=== PATIENT | male | born 1955 | race Caucasian/White ===

== ENCOUNTER 2016-11-20 12:55 | Observation (INO) | payer MEDICARE, OTHER ==
[2016-11-20] MEDS ORDERED: MORPHINE SULFATE 2 MG/ML SYRINGE IVP STA (13:50)
[2016-11-20] MEDS ORDERED: SODIUM CHLORIDE 0.9% 1,000 ML IV STA (13:50)
[2016-11-20 14:23] LABS: Basophils % (A) 0 %; CH 26.6; CHCM 33.1; Eosinophils # (A) 0.1 k/uL (0-0.7); Eosinophils % (A) 1 %; HCT 40.8 % (39.0-53.0); HDW 3.52; HGB 13.8 gm/dL (13.0-17.5); Luc # (Auto) 0.05; Luc % (Auto) 1; Lymphocytes # (A) 0.7 k/uL (1.0-4.8); Lymphocytes % (A) 10 %; MCH 27.4 pg (25.0-35.0); MCHC 33.9 g/dL (31.0-37.0); MCV 80.8 fL (80.0-100.0); Mean Platelet Volume 6.6; Monocytes # (A) 0.3 k/uL (0-1.0); Monocytes % (A) 4 %; Neutrophils # (A) 5.7 k/uL (1.3-7.7); Neutrophils % (A) 85 %; Poikilocytosis Slight; RBC 5.05 m/uL (4.30-5.90); RDW 15.6 % (11.5-15.5); WBC 6.7 k/uL (3.8-10.6); WBC (Perox) 6.71
[2016-11-20 14:26] LABS: INR 1.1 (<1.2); Prothrombin Time 11.4 sec (9.0-12.0)
[2016-11-20 14:27] LABS: Partial Thromboplastin Time 25.6 sec (22.0-30.0)
[2016-11-20 14:36] LABS: ALT 27 U/L (21-72); AST 18 U/L (17-59); Alkaline Phosphatase 92 U/L (38-126); Anion Gap 13 mmol/L; Blood Urea Nitrogen 17 mg/dL (9-20); Calcium 9.3 mg/dL (8.4-10.2); Carbon Dioxide 24 mmol/L (22-30); Chloride 107 mmol/L (98-107); Glucose 135 mg/dL (74-99); Non-African American GFR(MDRD) >60 (>60 ml/min/1.73 sqM); Potassium 4.3 mmol/L (3.5-5.1); Sodium 144 mmol/L (137-145); Total Bilirubin 0.7 mg/dL (0.2-1.3); Total Protein 7.4 g/dL (6.3-8.2)
[2016-11-20 14:42] LABS: Creatine Kinase 33 U/L (55-170)
[2016-11-20 14:55] LABS: Creatine Kinase MB 0.4 ng/mL (0.0-2.4); Troponin I <0.012 ng/mL (0.000-0.034)
--- NOTE | 2016-11-20 15:00 | XR ---
EXAMINATION TYPE: XR chest 1V DATE OF EXAM: 11/20/2016 COMPARISON: NONE HISTORY: Weakness, upper back pain TECHNIQUE: Single frontal view of the chest is obtained. FINDINGS: Patient is rotated, there are overlying cardiac leads. Exam is expiratory. No evident pneu monia, pneumothorax, or pleural effusion. Rib deformity present posterior third rib on the left of in determinate age. IMPRESSION: No acute process. Additional findings above.
--- NOTE | 2016-11-20 15:01 | XR ---
Right hip HISTORY: Weakness, cerebral palsy 2 views of the right hip Comparison prior exam 01/29/2016 Patient is rotated. There is joint space loss, question femoral acetabular impingement. Bone minerali zation is reduced. No fracture or dislocation. IMPRESSION: No acute abnormality, additional findings above.
--- NOTE | 2016-11-20 15:02 | XR ---
Bilateral knees HISTORY: Lower extremity weakness 3 views of the knees are submitted Correlation to prior left knee 11/28/2015 Joint space loss is present in the medial compartments. Alignment is maintained, bone mineralization is reduced. There are findings of patella richy bilaterally. IMPRESSION: Patella richy bilaterally, mild arthropathy. Osteopenia.
[2016-11-20 15:32] LABS: Appearance,Urine Clear (Clear); Bilirubin,Urine Negative (Negative); Glucose,Urine (UA) Negative (Negative); Ketones,Urine Negative (Negative); Leukocyte Esterase,Urine Negative (Negative); Nitrite,Urine Negative (Negative); PH, Urine 6.5 (5.0-8.0); Protein,Urine Negative (Negative); Specific Gravity,Urine 1.017 (1.001-1.035); UA Billing (MACRO vs. MICRO) CHEM
--- NOTE | 2016-11-20 15:39 | ED ---
Weakness HPI - General Chief complaint: Weakness Stated complaint: Weakness Time Seen by Provider: 11/20/16 13:40 Source: patient, EMS Mode of arrival: EMS Limitations: no limitations - History of Present Illness Initial comments: 61 years old male some chronic inability to walk been feeling very weak, he didn 't get out of the bed for 3 days him a he feels quite weak mostly he uses upper extremity to [employer] and He Said He Has Not Been Able to Do. His Caregiver Is His She Also Has Been under the Weather and She Stating She Has Not Been Able to Care for Him Because of Her Own Illness. His Biggest Concern Is withHis Lower Extremities Mostly Right Lower Extremity, Which She Uses removed from the back to temperature and vice versa area denies any headaches no chest pain or shortness of breath no abdominal pain no frequency urgency dysuria - Related Data Home Medications Medication Instructions Recorded Confirmed Enalapril [Vasotec] 10 mg PO BID 11/28/15 11/20/16 Ibuprofen [Motrin] 800 mg PO TID PRN 11/28/15 11/20/16 glipiZIDE XL [Glucotrol Xl] 5 mg PO BID 11/28/15 11/20/16 Hydrocodone/Acetaminophen [[place] 1 tab PO Q6H PRN 11/20/16 11/20/16 10-325] Insulin Glargine,Hum.rec.anlog 20 unit SQ HS 11/20/16 11/20/16 [Lantus Solostar] Nystatin [Nystop] 1 applic TOPICAL BID 11/20/16 11/20/16 metFORMIN HCL 1,000 mg PO BID 11/20/16 11/20/16 Allergies Allergy/AdvReac Type Severity Reaction Status Date / Time No Known Allergies Allergy Verified 11/20/16 13:41 Review of Systems ROS Statement: Those systems with pertinent positive or pertinent negative responses have been documented in the HPI. ROS Other: All systems not noted in ROS Statement are negative. Past Medical History Past Medical History: Diabetes Mellitus, Hypertension Additional Past Medical History / Comment(s): cerebal palsy History of Any Multi-Drug Resistant Organisms: None Reported Additional Past Surgical History / Comment(s): bilateral knee, tendon release in groin Past Psychological History: No Psychological Hx Reported Smoking Status: Never smoker Past Alcohol Use History: None Reported Past Drug Use History: None Reported General Exam - General Exam Comments Initial Comments: General: The patient is awake and alert, in no distress, and does not appear acutely ill. Skin: Skin is warm and dry and no rashes or lesions are noted. Eye: Pupils are equal, round and reactive to light, extra-ocular movements are intact; there is normal conjunctiva bilaterally. Ears, nose, mouth and throat: There are moist mucous membranes and no oral lesions. Neck: The neck is supple, there is no tenderness or JVD. Cardiovascular: There is a regular rate and rhythm. No murmur, rub or gallop is appreciated. Respiratory: To auscultation bilateral, no wheezing no rhonchi no distress respiratory rdz noticed Gastrointestinal: Soft, non-distended, non-tender abdomen without masses or organomegaly noted. There is no rebound or guarding present. Bowel sounds are unremarkable. Back: There is no tenderness to palpation in the midline. There is no obvious deformity. Musculoskeletal: Normal ROM, no because of his chronic condition he does have a limited range of motion it showed extremities but it's not changed from prior just feels weak Neurological: CN II-XII intact, Cranial nerves III through XII are intact. There are no obvious motor or sensory deficits. Coordination appears grossly intact. Speech is normal. Psychiatric: Cooperative, appropriate mood & affect, normal judgment. Limitations: no limitations Course Vital Signs 11/20/16 13:01 Temperature 98.3 F Pulse Rate 105 H Respiratory 20 Rate Blood Pressure 165/91 O2 Sat by Pulse 97 Oximetry Patient's labs including CBC, CMP, INR, troponin, chest x-ray, hip x-ray, knee, UA are all unremarkable - Reevaluation(s) Reevaluation #2: 11/20/16 15:38 She was encouraged to do a physical physical therapy at home and the patient posted the plan to Dr. Yousif. Family family suggesting N up to any of the local nursing homes for rehab, discussed that with Dr. Nayan Yousif EKG Findings - EKG Comments: EKG Findings:: G shows slight sinus tachycardia IN interval is 166 QRS duration is 118 QT/QTc is 338/4 throughout review of this EKG does not reveal any ST elevation or ST depression Medical Decision Making - Lab Data Result diagrams: 11/20/16 14:00 11/20/16 14:00 Lab Results 11/20/16 11/20/16 11/20/16 Range/Units 14:00 14:00 14:00 WBC 6.7 (3.8-10.6) k/uL RBC 5.05 (4.30-5.90) m/uL Hgb 13.8 (13.0-17.5) gm/dL Hct 40.8 (39.0-53.0) % MCV 80.8 (80.0-100.0) fL MCH 27.4 (25.0-35.0) pg MCHC 33.9 (31.0-37.0) g/dL RDW 15.6 H (11.5-15.5) % Plt Count 247 (150-450) k/uL Neutrophils % 85 % Lymphocytes % 10 % Monocytes % 4 % Eosinophils % 1 % Basophils % 0 % Neutrophils # 5.7 (1.3-7.7) k/uL Lymphocytes # 0.7 L (1.0-4.8) k/uL Monocytes # 0.3 (0-1.0) k/uL Eosinophils # 0.1 (0-0.7) k/uL Basophils # 0.0 (0-0.2) k/uL Poikilocytosis Slight PT (9.0-12.0) sec INR (<1.2) APTT (22.0-30.0) sec Sodium 144 (137-145) mmol/L Potassium 4.3 (3.5-5.1) mmol/L Chloride 107 (98-107) mmol/L Carbon Dioxide 24 (22-30) mmol/L Anion Gap 13 mmol/L BUN 17 (9-20) mg/dL Creatinine 0.60 L (0.66-1.25) mg/dL Est GFR (MDRD) Af Amer >60 (>60 ml/min/1.73 sqM) Est GFR (MDRD) Non-Af >60 (>60 ml/min/1.73 sqM) Glucose 135 H (74-99) mg/dL Plasma Lactic Acid Papo (0.7-2.0) mmol/L Calcium 9.3 (8.4-10.2) mg/dL Total Bilirubin 0.7 (0.2-1.3) mg/dL AST 18 (17-59) U/L ALT 27 (21-72) U/L Alkaline Phosphatase 92 (38-126) U/L Total Creatine Kinase 33 L (55-170) U/L CK-MB (CK-2) 0.4 (0.0-2.4) ng/mL CK-MB (CK-2) Rel Index 1.2 Troponin I <0.012 (0.000-0.034) ng/mL Total Protein 7.4 (6.3-8.2) g/dL Albumin 4.2 (3.5-5.0) g/dL Urine Color Urine Appearance (Clear) Urine pH (5.0-8.0) Ur Specific [place] (1.001-1.035) Urine Protein (Negative) Urine Glucose (UA) (Negative) Urine Ketones (Negative) Urine Blood (Negative) Urine Nitrite (Negative) Urine Bilirubin (Negative) Urine Urobilinogen (<2.0) mg/dL Ur Leukocyte Esterase (Negative) 11/20/16 11/20/16 11/20/16 Range/Units 14:00 14:00 15:25 WBC (3.8-10.6) k/uL RBC (4.30-5.90) m/uL Hgb (13.0-17.5) gm/dL Hct (39.0-53.0) % MCV (80.0-100.0) fL MCH (25.0-35.0) pg MCHC (31.0-37.0) g/dL RDW (11.5-15.5) % Plt Count (150-450) k/uL Neutrophils % % Lymphocytes % % Monocytes % % Eosinophils % % Basophils % % Neutrophils # (1.3-7.7) k/uL Lymphocytes # (1.0-4.8) k/uL Monocytes # (0-1.0) k/uL Eosinophils # (0-0.7) k/uL Basophils # (0-0.2) k/uL Poikilocytosis PT 11.4 (9.0-12.0) sec INR 1.1 (<1.2) APTT 25.6 (22.0-30.0) sec Sodium (137-145) mmol/L Potassium (3.5-5.1) mmol/L Chloride (98-107) mmol/L Carbon Dioxide (22-30) mmol/L Anion Gap mmol/L BUN (9-20) mg/dL Creatinine (0.66-1.25) mg/dL Est GFR (MDRD) Af Amer (>60 ml/min/1.73 sqM) Est GFR (MDRD) Non-Af (>60 ml/min/1.73 sqM) Glucose (74-99) mg/dL Plasma Lactic Acid Papo 1.1 (0.7-2.0) mmol/L Calcium (8.4-10.2) mg/dL Total Bilirubin (0.2-1.3) mg/dL AST (17-59) U/L ALT (21-72) U/L Alkaline Phosphatase (38-126) U/L Total Creatine Kinase (55-170) U/L CK-MB (CK-2) (0.0-2.4) ng/mL CK-MB (CK-2) Rel Index Troponin I (0.000-0.034) ng/mL Total Protein (6.3-8.2) g/dL Albumin (3.5-5.0) g/dL Urine Color Yellow Urine Appearance Clear (Clear) Urine pH 6.5 (5.0-8.0) Ur Specific [place] 1.017 (1.001-1.035) Urine Protein Negative (Negative) Urine Glucose (UA) Negative (Negative) Urine Ketones Negative (Negative) Urine Blood Negative (Negative) Urine Nitrite Negative (Negative) Urine Bilirubin Negative (Negative) Urine Urobilinogen 2.0 (<2.0) mg/dL Ur Leukocyte Esterase Negative (Negative) Disposition Clinical Impression: Generalized weakness Disposition: ADMITTED IP TO THIS [facility] Condition: Good Referrals: Nayan Yousif DO [Primary Care Provider] - 1-2 days
[2016-11-20] MEDS: HYDROcodone/APAP 10-325MG 1 EACH TAB PO PRN (17:56)
[2016-11-20] MEDS: IBUPROFEN 800 MG TAB PO PRN (17:57)
[2016-11-20 18:17] VITALS: BMI 38.9
[2016-11-20 20:57] LABS: Glucose,Whole Blood 146 mg/dL (75-99)
[2016-11-20] MEDS: glipiZIDE 5 MG TAB PO SCH (21:41)
[2016-11-20] MEDS: INSULIN GLARGINE 100 UNIT/ML 10 ML VIAL SQ SCH (21:41)
[2016-11-20] MEDS: NYSTATIN 100,000 UNIT/GM POWD 15 GM TOPICAL SCH (21:41)
[2016-11-20] MEDS: metFORMIN 500 MG TAB PO SCH (21:41)
[2016-11-21] MEDS: IBUPROFEN 800 MG TAB PO PRN ×2 (00:56→18:15)
[2016-11-21 07:01] LABS: Glucose,Whole Blood 103 mg/dL (75-99)
[2016-11-21] MEDS: glipiZIDE 5 MG TAB PO SCH ×2 (08:03→21:46)
[2016-11-21] MEDS: NYSTATIN 100,000 UNIT/GM POWD 15 GM TOPICAL SCH ×2 (08:03→22:48)
[2016-11-21] MEDS: metFORMIN 500 MG TAB PO SCH ×2 (08:03→21:46)
[2016-11-21] MEDS: LISINOPRIL 20 MG TAB PO SCH (08:03)
[2016-11-21 12:14] LABS: Glucose,Whole Blood 66 mg/dL (75-99)
[2016-11-21 12:54] LABS: Glucose,Whole Blood 68 mg/dL (75-99)
[2016-11-21 12:54] LABS: Glucose,Whole Blood 56 mg/dL (75-99)
[2016-11-21 12:58] LABS: Glucose,Whole Blood 78 mg/dL (75-99)
[2016-11-21 17:30] LABS: Glucose,Whole Blood 103 mg/dL (75-99)
[2016-11-21 21:40] LABS: Glucose,Whole Blood 95 mg/dL (75-99)
[2016-11-21] MEDS: INSULIN GLARGINE 100 UNIT/ML 10 ML VIAL SQ SCH (21:40)
[2016-11-22] MEDS: HYDROcodone/APAP 10-325MG 1 EACH TAB PO PRN ×2 (04:13→21:31)
[2016-11-22] MEDS: IBUPROFEN 800 MG TAB PO PRN (04:14)
[2016-11-22 07:14] LABS: Glucose,Whole Blood 131 mg/dL (75-99)
[2016-11-22] MEDS: LISINOPRIL 20 MG TAB PO SCH (09:28)
[2016-11-22] MEDS: metFORMIN 500 MG TAB PO SCH ×2 (09:28→21:34)
[2016-11-22] MEDS: glipiZIDE 5 MG TAB PO SCH ×2 (09:28→21:34)
[2016-11-22] MEDS: NYSTATIN 100,000 UNIT/GM POWD 15 GM TOPICAL SCH ×2 (09:28→21:32)
[2016-11-22 11:56] LABS: Glucose,Whole Blood 83 mg/dL (75-99)
--- NOTE | 2016-11-22 14:32 | HP ---
DATE OF ADMISSION: 11/20/2016 DATE PATIENT SEEN AND EXAMINED: 11/21/2016 The patient is a pleasant 61-year-old white male who was admitted for generalized weakness. The patient having some chronic inability to walk, has been falling and has been weak. He suffers from cerebral palsy, is wheelchair bound. He does have a lift at home. His caregiver, which is his , has been under the weather, she has not been able to care for him because of her own illnesses. Patient denies any particular complaints, just his inability to ambulate and bear weight. MEDICATIONS AT HOME: Vasotec, Motrin, Glucotrol, [place], Lantus, Nystatin and metformin. ALLERGIES: No known drug allergies. REVIEW OF SYSTEMS: Denies any chest pain. Denies any shortness of breath. Denies any dysuria. Denies any stroke or paralysis. Admits to cerebral palsy. 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 Other review of systems unremarkable. PAST MEDICAL HISTORY: Significant for diabetes, poor dentition, hypertension, cerebral palsy. PAST SURGICAL HISTORY: Bilateral knee, tendon release in his groin. SOCIAL HISTORY: Negative for tobacco, alcohol or drugs. PSYCHOLOGICAL: Denies any depression. PHYSICAL EXAMINATION: He is alert, he is answering questions appropriately. SKIN: Warm and dry to palpation. EYES: Pupils equal, round, reactive to light. NECK: Supple. No JVD. HEART: Regular rate and rhythm. LUNGS: Clear to auscultation. ABDOMEN: Soft, nontender. No rebound, rigidity or guarding. EXTREMITIES: Some contractions in lower extremities. NEUROLOGIC: Cranial nerves 2-12 grossly intact. Some flexure contractions in the upper extremities. There is some weakness and atrophy in the lower extremities secondary to cerebral palsy. Labs are essentially unremarkable with negative urine. IMPRESSION: 1. Acute generalized weakness. 2. Unable to ambulate. 3. Cerebral palsy. PLAN: Admit patient hopefully with physical therapy and rehab placement for patient if possible. [facility]
--- NOTE | 2016-11-22 14:59 | PN ---
SUBJECTIVE: The patient is a 61 year old white male who was admitted. He is doing well today without any complaints. He wants inpatient rehabilitation. However, he is still in observation admission to the hospital and not a full admission. His urine looks good. His sugars have been stable. His lower extremities still are weak. Mostly his right lower extremity. He states he might need a new brace for this area. Physical exam: HEENT: Head is normocephalic with poor dentition. Neck is supple with no JVD. Heart regular rate and rhythm. Lungs clear to auscultation. Abdomen soft and nontender. No rebound, rigidity or guarding. IMPRESSION: 1. Acute generalized weakness. 2. Cerebral palsy, wheelchair bound. Power lift and scooter use. PLAN: Hopefully get the patient transferred to any rehab facility. CELY
[2016-11-22 17:06] LABS: Glucose,Whole Blood 76 mg/dL (75-99)
[2016-11-22 20:51] LABS: Glucose,Whole Blood 117 mg/dL (75-99)
[2016-11-22] MEDS: INSULIN GLARGINE 100 UNIT/ML 10 ML VIAL SQ SCH (22:49)
[2016-11-23] MEDS: IBUPROFEN 800 MG TAB PO PRN ×2 (00:39→09:09)
[2016-11-23 02:05] LABS: Glucose,Whole Blood 73 mg/dL (75-99)
[2016-11-23 06:40] LABS: Glucose,Whole Blood 90 mg/dL (75-99)
[2016-11-23 07:36] VITALS: BP 120/77; PULSE 74; RESP 14; TEMP 96.9
[2016-11-23] MEDS: glipiZIDE 5 MG TAB PO SCH (08:55)
[2016-11-23] MEDS: metFORMIN 500 MG TAB PO SCH (08:59)
[2016-11-23] MEDS: LISINOPRIL 20 MG TAB PO SCH (09:02)
[2016-11-23] MEDS: NYSTATIN 100,000 UNIT/GM POWD 15 GM TOPICAL SCH (09:06)
[2016-11-23 11:49] LABS: Glucose,Whole Blood 146 mg/dL (75-99)
== END 2016-11-23 14:52 | disposition home health service (06) ==
LOC: EC 12:55 → INTOOBSV 15:42 → OBSVTOIN 15:42 → 4MS4W 15:42
PROVIDERS: ADMIT Family Medicine; ATTEND Family Medicine
DX: R53.1 Weakness (principal); M54.89 Other dorsalgia; I10 Essential (primary) hypertension; E11.9 Type 2 diabetes mellitus without complications; G80.9 Cerebral palsy, unspecified; Z79.84 Long term (current) use of oral hypoglycemic drugs; Z79.899 Other long term (current) drug therapy; Z79.4 Long term (current) use of insulin; Z99.3 Dependence on wheelchair
CPT/HCPCS: 96361 ×3; 96360; 99285; 36415; 93005; 97162; 97166; 80053; 82550; 82553; 83605; 84484; 85025; 85610; 85730; 81003; 71010; 73560; 73502; G0378 ×4

== ENCOUNTER 2022-06-08 19:53 | Inpatient (IN) | payer MEDICARE, OTHER ==
[2022-06-08] MEDS ORDERED: SODIUM CHLORIDE 0.9% 1,000 ML IV STA ×2 (20:18)
[2022-06-08 21:09] LABS: Basophils % (A) 0 %; Eosinophils # (A) 0.1 k/uL (0-0.7); Eosinophils % (A) 1 %; HCT 43.4 % (39.0-53.0); HGB 15.1 gm/dL (13.0-17.5); Lymphocytes # (A) 1.2 k/uL (1.0-4.8); Lymphocytes % (A) 15 %; MCH 28.3 pg (25.0-35.0); MCHC 34.8 g/dL (31.0-37.0); MCV 81.3 fL (80.0-100.0); Monocytes # (A) 0.3 k/uL (0-1.0); Monocytes % (A) 4 %; Neutrophils # (A) 5.9 k/uL (1.3-7.7); Neutrophils % (A) 77 %; Platelet Count 208 k/uL (150-450); Poikilocytosis Slight; RBC 5.33 m/uL (4.30-5.90); RDW 15.4 % (11.5-15.5); WBC 7.6 k/uL (3.8-10.6)
[2022-06-08 21:27] LABS: ALT 20 U/L (4-49); AST 19 U/L (17-59); African American GFR (CKD) >90 (>60 ml/min/1.73 sqM); Albumin 4.2 g/dL (3.5-5.0); Alkaline Phosphatase 89 U/L (38-126); Anion Gap 10 mmol/L; Blood Urea Nitrogen 16 mg/dL (9-20); C Reactive Protein 1.7 mg/dL (<1.0); Calcium 8.7 mg/dL (8.4-10.2); Carbon Dioxide 23 mmol/L (22-30); Chloride 108 mmol/L (98-107); Glucose 176 mg/dL (74-99); Non-African American GFR(CKD) >90 (>60 ml/min/1.73 sqM); Potassium 3.9 mmol/L (3.5-5.1); Sodium 141 mmol/L (137-145); Total Bilirubin 0.8 mg/dL (0.2-1.3); Total Protein 7.2 g/dL (6.3-8.2)
--- NOTE | 2022-06-08 21:31 | XR ---
EXAMINATION TYPE: XR pelvis AP view DATE OF EXAM: 06/08/2022 COMPARISON: NONE HISTORY: bed Sore left hip. TECHNIQUE: Single view FINDINGS: The pelvic ring is intact. Proximal femurs are intact. No focal bone destruction. Sacroilia c joints are intact. There is narrowing of right hip joint space with spur formation. IMPRESSION: Right hip osteoarthritis. No focal bone destruction.
[2022-06-08 21:57] LABS: Erythrocyte Sedimentation Rate 18 mm/hr (0-15)
[2022-06-08] MEDS ORDERED: AMPICILLIN-SULBACTAM 3 GM in SODIUM CHLORIDE 0.9% 100 ML IVPB STA (21:57)
--- NOTE | 2022-06-08 21:57 | ED ---
General Adult HPI - General Chief complaint: Extremity Problem,Nontraumatic Stated complaint: BED SORE,SENT BY PCP Time Seen by Provider: 06/08/22 20:05 Source: patient, EMS Mode of arrival: EMS Limitations: physical limitation - History of Present Illness Initial comments: 67-year-old male with past history of diabetes, hypertension, cerebral palsy who is wheelchair bound who presents emergency department for sore on his left buttock. He has a home care nurse that comes in once a week to help care for him. The home care nurse noted that he had a wound to his left buttock. He has also been battling a wound to his right anterior coleman. He is wheelchair bound. States that he was well taken care of before March however in March he lost his . He now lives with his [id number] who also has medical problems. He has been more sedentary than what he is used to. He denies having much pain in the region. No fevers. Denies any chest pain or shortness of breath. No nausea or vomiting. Denies any anterior abdominal pain. No changes in his bowel or bladder habits. States he has been eating and drinking without difficulty. He called his primary care doctor who recommended that he come into the emergency department for evaluation. - Related Data Home Medications Medication Instructions Recorded Confirmed Enalapril [Vasotec] 10 mg PO DAILY 11/28/15 06/08/22 Ibuprofen [Motrin] 800 mg PO TID PRN 11/28/15 06/08/22 glipiZIDE XL [Glucotrol XL] 5 mg PO BID 11/28/15 06/08/22 metFORMIN HCL [Glucophage] 1,000 mg PO BID 11/20/16 06/08/22 Atorvastatin [Lipitor] 20 mg PO HS 06/08/22 06/08/22 Insulin Degludec [Tresiba 25 units SQ DAILY PRN 06/08/22 06/08/22 Flextouch U-200 Pen] Silver Sulfadiazine [SSD 1% Cream] 1 applic TOPICAL DAILY PRN 06/08/22 06/08/22 Allergies Allergy/AdvReac Type Severity Reaction Status Date / Time No Known Allergies Allergy Verified 06/08/22 20:57 Review of Systems ROS Statement: Those systems with pertinent positive or pertinent negative responses have been documented in the HPI. ROS Other: All systems not noted in ROS Statement are negative. Past Medical History Past Medical History: Diabetes Mellitus, Hypertension Additional Past Medical History / Comment(s): cerebal palsy History of Any Multi-Drug Resistant Organisms: None Reported Past Surgical History: Cholecystectomy Additional Past Surgical History / Comment(s): bilateral knee, tendon release in groin Past Anesthesia/Blood Transfusion Reactions: No Reported Reaction Past Psychological History: No Psychological Hx Reported Past Alcohol Use History: None Reported Past Drug Use History: None Reported - Past Family History Father Family Medical History: Myocardial Infarction (NH) Additional Family Medical History / Comment(s): Brother(s) Family Medical History: Myocardial Infarction (NH) General Exam Limitations: physical limitation General appearance: alert, in no apparent distress Head exam: Present: atraumatic, normocephalic, normal inspection Eye exam: Present: normal appearance, PERRL, EOMI. Absent: scleral icterus, conjunctival injection, periorbital swelling ENT exam: Present: normal exam, mucous membranes moist Neck exam: Present: normal inspection. Absent: tenderness, meningismus, lymphadenopathy Respiratory exam: Present: normal lung sounds bilaterally. Absent: respiratory distress, wheezes, rales, rhonchi, stridor Cardiovascular Exam: Present: normal rhythm, tachycardia, normal heart sounds. Absent: systolic murmur, diastolic murmur, rubs, gallop, clicks GI/Abdominal exam: Present: soft, normal bowel sounds. Absent: distended, tenderness, guarding, rebound, rigid Rectal exam: Present: other (stage 1 sacral wound) Extremities exam: Present: normal capillary refill, other (muscle atrophy lower extremities). Absent: tenderness, pedal edema, joint swelling, calf tenderness Back exam: Present: normal inspection Neurological exam: Present: alert, oriented X3, CN II-XII intact Psychiatric exam: Present: normal affect, normal mood Skin exam: Present: warm, dry, intact, normal color. Absent: rash Course Vital Signs 06/08/22 06/08/22 06/08/22 20:00 20:01 20:10 Temperature 97.4 F L Pulse Rate 127 H 135 H Respiratory 18 Rate Blood Pressure 174/102 174/102 O2 Sat by Pulse 98 97 Oximetry 06/08/22 06/08/22 06/08/22 20:40 20:50 21:00 Temperature Pulse Rate 128 H 122 H 120 H Respiratory Rate Blood Pressure 158/100 153/99 153/99 O2 Sat by Pulse Oximetry 06/08/22 06/08/22 06/08/22 21:10 21:20 21:30 Temperature Pulse Rate 121 H 124 H Respiratory Rate Blood Pressure 156/95 137/106 137/106 O2 Sat by Pulse 96 97 Oximetry 06/08/22 06/08/22 06/08/22 22:00 22:30 23:00 Temperature Pulse Rate 118 H 115 H 105 H Respiratory 18 Rate Blood Pressure 119/107 179/98 156/109 O2 Sat by Pulse 96 96 98 Oximetry EKG Findings - EKG Comments: EKG Findings:: EKG demonstrates sinus tachycardia with a rate of 125. QRS 127. QTC of 491. Right bundle-branch block. No acute ST segment elevations or depressions Medical Decision Making - Medical Decision Making Was pt. sent in by a medical professional or institution (CON Marmolejo, BOOM CONVEYOR OPERATOR, urgent care, hospital, or custodial...) When possible be specific No Did you speak to anyone other than the patient for history (EMS, parent, family, police, friend...)? What history was obtained from this source No Did you review nursing and triage notes (agree or disagree)? Why? I reviewed and agree with nursing and triage notes Were old charts reviewed (outside hosp., previous admission, EMS record, old EKG, old radiological studies, urgent care reports/EKG's, custodial records)? Report findings Prior charts were reviewed Differential Diagnosis (chest pain, altered mental status, abdominal pain women, abdominal pain men, vaginal bleeding, weakness, fever, dyspnea, syncope, headache, dizziness, GI bleed, back pain, seizure, CVA, palpatations, mental health)? sacral wound, necrotizing fascitis, sepsis EKG interpreted by me (3pts min.). Yes X-rays interpreted by me (1pt min.). Yes CT interpreted by me (1pt min.). Not done U/S interpreted by me (1pt. min.). Note done What testing was considered but not performed or refused? (CT, X-rays, U/S, labs)? Why? None What meds were considered but not given or refused? Why? None Did you discuss the management of the patient with other professionals (professionals i.e. CON Marmolejo, BOOM CONVEYOR OPERATOR, lab, RT, psych nurse, social work assistant, box stapler, teacher, surveillance dual rate officer, behavioral health case manager)? Give summary Admitting physician Was smoking cessation discussed for >3mins.? No Was critical care preformed (if so, how long)? No Were there social determinants of health that impacted care today? How? (Homelessness, low income, unemployed, alcoholism, drug addiction, transportation, low edu. Level, literacy, decrease access to med. care, assisted, rehab)? No Was there de-escalation of care discussed even if they declined (Discuss DNR or withdrawal of care, Hospice)? DNR status No What co-morbidities impacted this encounter? (DM, HTN, Smoking, COPD, CAD, Cancer, CVA, ARF, Chemo, Hep., AIDS, mental health diagnosis, sleep apnea, morbid obesity)? CP, wheelchair bound Was patient admitted / discharged? Hospital course, mention meds given and route, prescriptions, significant lab abnormalities, going to OR and other pertinent info. Upon arrival patient was placed into room 20. A thorough history and physical exam was performed. IV access was established and laboratory studies are conducted. Patient does have persistent tachycardia however patient denies ches t pain, shortness of breath or palpitations. Laboratory studies reveal a lactic of 3.8. C-reactive protein 1.7. Pelvic x-ray is performed to look for gas which is present. Results are discussed with the patient. Recommend admission for which she was agreeable. I will consult case management and wound care. Undiagnosed new problem with uncertain prognosis? Yes Drug Therapy requiring intensive monitoring for toxicity (Heparin, Nitro, Ins ulin, Cardizem)? No Were any procedures done? No Diagnosis/symptom? acute sacral wound, tachycardia Acute, or Chronic, or Acute on Chronic? acute Uncomplicated (without systemic symptoms) or Complicated (systemic symptoms)? complicated Side effects of treatment? no Exacerbation, Progression, or Severe Exacerbation? no Poses a threat to life or bodily function? How? (Chest pain, [place], [place], pneumonia, PE, COPD, DKA, ARF, appy, cholecystitis, CVA, Diverticulitis, Homicidal, Suicidal, threat to staff... and all critical care pts) yes - Lab Data Result diagrams: 06/10/22 06:42 06/10/22 06:42 Lab Results 06/08/22 06/08/22 06/08/22 Range/Units 20:36 20:36 20:36 WBC 7.6 (3.8-10.6) k/uL RBC 5.33 (4.30-5.90) m/uL Hgb 15.1 (13.0-17.5) gm/dL Hct 43.4 (39.0-53.0) % MCV 81.3 (80.0-100.0) fL MCH 28.3 (25.0-35.0) pg MCHC 34.8 (31.0-37.0) g/dL RDW 15.4 (11.5-15.5) % Plt Count 208 (150-450) k/uL MPV 7.0 Neutrophils % 77 % Lymphocytes % 15 % Monocytes % 4 % Eosinophils % 1 % Basophils % 0 % Neutrophils # 5.9 (1.3-7.7) k/uL Lymphocytes # 1.2 (1.0-4.8) k/uL Monocytes # 0.3 (0-1.0) k/uL Eosinophils # 0.1 (0-0.7) k/uL Basophils # 0.0 (0-0.2) k/uL Poikilocytosis Slight ESR 18 H (0-15) mm/hr Sodium 141 (137-145) mmol/L Potassium 3.9 (3.5-5.1) mmol/L Chloride 108 H (98-107) mmol/L Carbon Dioxide 23 (22-30) mmol/L Anion Gap 10 mmol/L BUN 16 (9-20) mg/dL Creatinine 0.71 (0.66-1.25) mg/dL Est GFR (CKD-EPI)AfAm >90 (>60 ml/min/1.73 sqM) Est GFR (CKD-EPI)NonAf >90 (>60 ml/min/1.73 sqM) Glucose 176 H (74-99) mg/dL Lactic Ac Sepsis Rflx Plasma Lactic Acid Papo 3.8 H* (0.7-2.0) mmol/L Calcium 8.7 (8.4-10.2) mg/dL Total Bilirubin 0.8 (0.2-1.3) mg/dL AST 19 (17-59) U/L ALT 20 (4-49) U/L Alkaline Phosphatase 89 (38-126) U/L C-Reactive Protein 1.7 H (<1.0) mg/dL Total Protein 7.2 (6.3-8.2) g/dL Albumin 4.2 (3.5-5.0) g/dL 06/08/22 Range/Units 21:41 WBC (3.8-10.6) k/uL RBC (4.30-5.90) m/uL Hgb (13.0-17.5) gm/dL Hct (39.0-53.0) % MCV (80.0-100.0) fL MCH (25.0-35.0) pg MCHC (31.0-37.0) g/dL RDW (11.5-15.5) % Plt Count (150-450) k/uL MPV Neutrophils % % Lymphocytes % % Monocytes % % Eosinophils % % Basophils % % Neutrophils # (1.3-7.7) k/uL Lymphocytes # (1.0-4.8) k/uL Monocytes # (0-1.0) k/uL Eosinophils # (0-0.7) k/uL Basophils # (0-0.2) k/uL Poikilocytosis ESR (0-15) mm/hr Sodium (137-145) mmol/L Potassium (3.5-5.1) mmol/L Chloride (98-107) mmol/L Carbon Dioxide (22-30) mmol/L Anion Gap mmol/L BUN (9-20) mg/dL Creatinine (0.66-1.25) mg/dL Est GFR (CKD-EPI)AfAm (>60 ml/min/1.73 sqM) Est GFR (CKD-EPI)NonAf (>60 ml/min/1.73 sqM) Glucose (74-99) mg/dL Lactic Ac Sepsis Rflx Y Plasma Lactic Acid Papo (0.7-2.0) mmol/L Calcium (8.4-10.2) mg/dL Total Bilirubin (0.2-1.3) mg/dL AST (17-59) U/L ALT (4-49) U/L Alkaline Phosphatase (38-126) U/L C-Reactive Protein (<1.0) mg/dL Total Protein (6.3-8.2) g/dL Albumin (3.5-5.0) g/dL Disposition Clinical Impression: Sacral wound, Lactic acidosis, Sinus tachycardia Disposition: ADMITTED IP TO THIS [facility] Condition: Stable Is patient prescribed a controlled substance at d/c from ED?: No Time of Disposition: 21:57 Decision to Admit Reason: Admit from EC Decision Date: 06/08/22 Decision Time: 21:57
[2022-06-08] MEDS ORDERED: NALOXONE 0.4 MG/ML 1 ML VIAL IV PRN (21:58)
[2022-06-08] MEDS ORDERED: VANCOMYCIN IV PER PHARMACY 1 EACH MISC MISCELLANE PRN (21:58)
[2022-06-08] MEDS ORDERED: ACETAMINOPHEN TAB 325 MG TAB PO PRN (21:58)
[2022-06-08] MEDS ORDERED: VANCOMYCIN 1,500 MG in SODIUM CHLORIDE 0.9% 500 ML 500 ML IVPB ONE (23:00)
[2022-06-09 04:09] LABS: Basophils % (A) 0 %; Eosinophils # (A) 0.1 k/uL (0-0.7); Eosinophils % (A) 1 %; HCT 40.9 % (39.0-53.0); HGB 13.7 gm/dL (13.0-17.5); Lymphocytes # (A) 1.3 k/uL (1.0-4.8); Lymphocytes % (A) 19 %; MCH 28.3 pg (25.0-35.0); MCHC 33.5 g/dL (31.0-37.0); MCV 84.3 fL (80.0-100.0); Mean Platelet Volume 6.9; Monocytes # (A) 0.3 k/uL (0-1.0); Monocytes % (A) 5 %; Neutrophils # (A) 5.2 k/uL (1.3-7.7); Neutrophils % (A) 74 %; Platelet Count 187 k/uL (150-450); Poikilocytosis Slight; RBC 4.85 m/uL (4.30-5.90); RDW 15.2 % (11.5-15.5)
[2022-06-09 04:30] LABS: African American GFR (CKD) >90 (>60 ml/min/1.73 sqM); Anion Gap 8 mmol/L; Blood Urea Nitrogen 16 mg/dL (9-20); Calcium 8.1 mg/dL (8.4-10.2); Carbon Dioxide 22 mmol/L (22-30); Chloride 111 mmol/L (98-107); Glucose 115 mg/dL (74-99); Non-African American GFR(CKD) >90 (>60 ml/min/1.73 sqM); Potassium 3.6 mmol/L (3.5-5.1); Sodium 141 mmol/L (137-145)
[2022-06-09 05:55] LABS: Glucose,Whole Blood 136 mg/dL (70-110)
[2022-06-09] MEDS ORDERED: VANCOMYCIN 1,250 MG in SODIUM CHLORIDE 0.9% 250 ML IVPB SCH ×2 (08:00→13:00)
[2022-06-09] MEDS ORDERED: IBUPROFEN 800 MG TAB PO PRN (09:55)
[2022-06-09] MEDS ORDERED: INSULIN DETEMIR (LEVEMIR) 100 UNIT/ML SYR SQ PRN (09:55)
[2022-06-09] MEDS: lisinopriL 20 MG TAB PO SCH (11:30)
[2022-06-09 11:41] LABS: Glucose,Whole Blood 146 mg/dL (70-110)
[2022-06-09] MEDS: INSULIN ASPART (NovoLOG) 100 UNIT/ML VIAL SQ SCH ×3 (11:41→21:50)
[2022-06-09] MEDS: VANCOMYCIN 1,500 MG in SODIUM CHLORIDE 0.9% 500 ML 500 ML IVPB SCH (11:53)
[2022-06-09 16:37] LABS: Glucose,Whole Blood 162 mg/dL (70-110)
--- NOTE | 2022-06-09 18:21 | P.HPIM ---
History of Present Illness H&P Date: 06/09/22 Chief Complaint: Wound left buttock 67-year-old male with past history of diabetes, hypertension, cerebral palsy who is wheelchair bound who presents emergency department for sore on his left buttock. He has a home care nurse that comes in once a week to help care for him. The home care nurse noted that he had a wound to his left buttock. He has also been battling a wound to his right anterior coleman. He is wheelchair bound. States that he was well taken care of before March however in March he lost his . He now lives with his [id number] who also has medical problems. He has been more sedentary than what he is used to. He denies having much pain in the region. No fevers. Denies any chest pain or shortness of breath. No nausea or vomiting. Denies any anterior abdominal pain. No changes in his bowel or bladder habits. States he has been eating and drinking without difficulty. He called his primary care doctor who recommended that he come into the emergency department for evaluation. EKG Findings:: EKG demonstrates sinus tachycardia with a rate of 125. QRS 127. QTC of 491. Right bundle-branch block. No acute ST segment elevations or depressions Patient does have persistent tachycardia however patient denies chest pain, shortness of breath or palpitations. Laboratory studies reveal a lactic of 3.8. C-reactive protein 1.7. Pelvic x-ray is performed to look for gas which is present. Patient is reported to have recently lost his and is now being cared by [id number]; in the ER patient was found to be unkempt; social service/WING SCORER consult is recommended for possible placement Review of Systems REVIEW OF SYSTEMS: CONSTITUTIONAL: No fever, no malaise, no fatigue. HEENT: No recent visual problems or hearing problems. Denied any sore throat. CARDIOVASCULAR: No chest pain, orthopnea, PND, no palpitations, no syncope. PULMONARY: No shortness of breath, no cough, no hemoptysis. GASTROINTESTINAL: No diarrhea, no nausea, no vomiting, no abdominal pain. NEUROLOGICAL: No headaches, no weakness, no numbness. HEMATOLOGICAL: Denies any bleeding or petechiae. GENITOURINARY: Denies any burning micturition, frequency, or urgency. MUSCULOSKELETAL/RHEUMATOLOGICAL: Denies any joint pain, swelling, or any muscle pain. ENDOCRINE: Denies any polyuria or polydipsia. The rest of the 14-point review of systems is negative. Past Medical History Past Medical History: Diabetes Mellitus, Hypertension Additional Past Medical History / Comment(s): cerebal palsy History of Any Multi-Drug Resistant Organisms: None Reported Past Surgical History: Cholecystectomy Additional Past Surgical History / Comment(s): bilateral knee, tendon release in groin Past Anesthesia/Blood Transfusion Reactions: No Reported Reaction Smoking Status: Unknown if ever smoked - Past Family History Father Family Medical History: Myocardial Infarction ([place]) Additional Family Medical History / Comment(s): Brother(s) Family Medical History: Myocardial Infarction ([place]) Medications and Allergies Home Medications Medication Instructions Recorded Confirmed Type Enalapril [Vasotec] 10 mg PO DAILY 11/28/15 06/08/22 History Ibuprofen [Motrin] 800 mg PO TID PRN 11/28/15 06/08/22 History glipiZIDE XL [Glucotrol XL] 5 mg PO BID 11/28/15 06/08/22 History metFORMIN HCL [Glucophage] 1,000 mg PO BID 11/20/16 06/08/22 History Atorvastatin [Lipitor] 20 mg PO HS 06/08/22 06/08/22 History Insulin Degludec [Tresiba 25 units SQ DAILY PRN 06/08/22 06/08/22 History Flextouch U-200 Pen] Silver Sulfadiazine [SSD 1% Cream] 1 applic TOPICAL DAILY PRN 06/08/22 06/08/22 History Allergies Allergy/AdvReac Type Severity Reaction Status Date / Time No Known Allergies Allergy Verified 06/08/22 20:57 Physical Exam Vitals: Vital Signs Temp Pulse Pulse Resp BP BP Pulse Ox 06/09/22 07:32 97.6 F 87 15 156/92 98 06/09/22 01:55 98.5 F 100 18 139/75 99 06/09/22 00:21 97.9 F 103 H 17 156/95 97 06/08/22 23:00 105 H 18 156/109 98 06/08/22 22:30 115 H 179/98 96 06/08/22 22:00 118 H 119/107 96 06/08/22 21:30 124 H 137/106 97 06/08/22 21:20 121 H 137/106 96 06/08/22 21:10 156/95 06/08/22 21:00 120 H 153/99 06/08/22 20:50 122 H 153/99 06/08/22 20:40 128 H 158/100 06/08/22 20:10 135 H 174/102 06/08/22 20:01 97.4 F L 127 H 18 174/102 97 06/08/22 20:00 98 Intake and Output 06/08/22 06/09/22 06/09/22 22:59 06:59 14:59 Output Total 350 Balance -350 Output: Urine 350 Other: Weight 90.718 kg 90.718 kg PHYSICAL EXAMINATION: GENERAL: The patient is alert and oriented x3, not in any acute distress. Well developed, well nourished. HEENT: Pupils are round and equally reacting to light. EOMI. No scleral icterus. No conjunctival pallor. Normocephalic, atraumatic. No pharyngeal erythema. No thyromegaly. CARDIOVASCULAR: S1 and S2 present. No murmurs, rubs, or gallops. PULMONARY: Chest is clear to auscultation, no wheezing or crackles. ABDOMEN: Soft, nontender, nondistended, normoactive bowel sounds. No palpable organomegaly. MUSCULOSKELETAL: No joint swelling or deformity. EXTREMITIES: No cyanosis, clubbing, or pedal edema. NEUROLOGICAL: Gross neurological examination did not reveal any focal deficits. SKIN: No rashes. Results CBC & Chem 7: 06/09/22 03:26 06/09/22 03:26 Labs: Abnormal Lab Results - Last 24 Hours (Table) 06/08/22 06/08/22 06/08/22 Range/Units 20:36 20:36 20:36 ESR 18 H (0-15) mm/hr Chloride 108 H (98-107) mmol/L Creatinine (0.66-1.25) mg/dL Glucose 176 H (74-99) mg/dL POC Glucose (mg/dL) (70-110) mg/dL Plasma Lactic Acid Papo 3.8 H* (0.7-2.0) mmol/L Calcium (8.4-10.2) mg/dL C-Reactive Protein 1.7 H (<1.0) mg/dL 0206/09/22 06/09/22 Range/Units 00:05 03:26 03:26 ESR (0-15) mm/hr Chloride 111 H (98-107) mmol/L Creatinine 0.58 L (0.66-1.25) mg/dL Glucose 115 H (74-99) mg/dL POC Glucose (mg/dL) (70-110) mg/dL Plasma Lactic Acid Papo 2.8 H* 2.9 H* (0.7-2.0) mmol/L Calcium 8.1 L (8.4-10.2) mg/dL C-Reactive Protein (<1.0) mg/dL 06/09/22 Range/Units 05:53 ESR (0-15) mm/hr Chloride (98-107) mmol/L Creatinine (0.66-1.25) mg/dL Glucose (74-99) mg/dL POC Glucose (mg/dL) 136 H (70-110) mg/dL Plasma Lactic Acid Papo (0.7-2.0) mmol/L Calcium (8.4-10.2) mg/dL C-Reactive Protein (<1.0) mg/dL Assessment and Plan Assessment: 1. Infected sacral decubitus ulcer - Local wound care is ordered; patient is placed on IV Unasyn; ID is consulted - We will monitor CBC, CMP and pro-calcitonin 2. Lactic acidosis; likely related to wound tract infection versus dehydration; patient did receive IV fluid resuscitation; lactic acid level is trending down 3. Hypertension; stable on home dose of lisinopril 20 mg daily 4. Diabetes mellitus controlled with insulin; continue with Levemir 25 units subcu daily along with metformin thousand milligrams twice a day; monitor Accu- Cheks before meals and at bedtime with insulin sliding scale 5. Hyperlipidemia; Lipitor 20 mg by mouth daily at bedtime 6. Cerebral palsy; we will consult case management/WING SCORER for possible placement
[2022-06-09 20:38] LABS: Glucose,Whole Blood 141 mg/dL (70-110)
[2022-06-09] MEDS: metFORMIN 500 MG TAB PO SCH (21:49)
[2022-06-09] MEDS: ATORVASTATIN 20 MG TAB PO SCH (21:50)
--- NOTE | 2022-06-09 21:52 | P.CONS ---
History of Present Illness - Reason for Consult Consult date: 06/09/22 Infected sacral wound Requesting physician: Nahomy Viveros - Chief Complaint Worsening to the back and right leg x days - History of Present Illness Patient is a 67-year-old male with a past medical history significant for diabetes mellitus and hypertension cerebral palsy in this patient who is a wheelchair-bound presenting to the ER for evaluation of a wound to his left gluteal area and currently the patient also have one on his right anterior coleman patient apparently did have a home care nurse wound checks on him once daily to change his dressing however there has been concern for possible worsening of his wound for the patient had been sent to the ER for further evaluation by his PCP. On today's evaluation that is 06/09/2019, the patient denies having any fever or any chills, the patient denies any chest pain or shortness of breath or cough no nausea no vomiting no abdominal pain no diarrhea patient did have some dull aching pain to his left gluteal wound area 2-3 out of 10 and no radiation however there is no sniffing and slough tissue or any drainage but the nursing staff patient on presentation hospital was afebrile and no fever has been rec orded subsequently patient did have a normal white count patient did have x-ray of the pelvis area did not show any bony destruction patient was started on vancomycin and infectious disease was consulted for further management of antibiotic therapy Review of Systems Positive point has been mentioned in the HPI rest of the systems are negative Past Medical History Past Medical History: Diabetes Mellitus, Hypertension Additional Past Medical History / Comment(s): cerebal palsy History of Any Multi-Drug Resistant Organisms: None Reported Past Surgical History: Cholecystectomy Additional Past Surgical History / Comment(s): bilateral knee, tendon release in groin Past Anesthesia/Blood Transfusion Reactions: No Reported Reaction Smoking Status: Unknown if ever smoked - Past Family History Father Family Medical History: Myocardial Infarction ([place]) Additional Family Medical History / Comment(s): Brother(s) Family Medical History: Myocardial Infarction ([place]) Medications and Allergies Home Medications Medication Instructions Recorded Confirmed Type Enalapril [Vasotec] 10 mg PO DAILY 11/28/15 06/08/22 History Ibuprofen [Motrin] 800 mg PO TID PRN 11/28/15 06/08/22 History glipiZIDE XL [Glucotrol XL] 5 mg PO BID 11/28/15 06/08/22 History metFORMIN HCL [Glucophage] 1,000 mg PO BID 11/20/16 06/08/22 History Atorvastatin [Lipitor] 20 mg PO HS 06/08/22 06/08/22 History Insulin Degludec [Tresiba 25 units SQ DAILY PRN 06/08/22 06/08/22 History Flextouch U-200 Pen] Silver Sulfadiazine [SSD 1% Cream] 1 applic TOPICAL DAILY PRN 06/08/22 06/08/22 History Acetaminophen Tab [Tylenol] 650 mg PO Q6HR PRN tab 06/12/22 Rx INSULIN LISPRO (HumaLOG) [humaLOG] 0 unit SQ ACHS #10 ml 06/12/22 Rx Nystatin 100,000 Unit/gm Powd 1 applic TOPICAL TID #30 gm 06/12/22 Rx [Mycostatin Powder] Cephalexin [Keflex] 500 mg PO Q8HR 7 Days #21 cap 06/13/22 Rx Allergies Allergy/AdvReac Type Severity Reaction Status Date / Time No Known Allergies Allergy Verified 06/08/22 20:57 Physical Exam Vitals: Vital Signs Temp Pulse Pulse Resp BP BP Pulse Ox 06/09/22 07:32 97.6 F 87 15 156/92 98 06/09/22 01:55 98.5 F 100 18 139/75 99 06/09/22 00:21 97.9 F 103 H 17 156/95 97 06/08/22 23:00 105 H 18 156/109 98 06/08/22 22:30 115 H 179/98 96 06/08/22 22:00 118 H 119/107 96 06/08/22 21:30 124 H 137/106 97 06/08/22 21:20 121 H 137/106 96 06/08/22 21:10 156/95 06/08/22 21:00 120 H 153/99 06/08/22 20:50 122 H 153/99 06/08/22 20:40 128 H 158/100 06/08/22 20:10 135 H 174/102 06/08/22 20:01 97.4 F L 127 H 18 174/102 97 06/08/22 20:00 98 Intake and Output 06/08/22 06/09/22 06/09/22 22:59 06:59 14:59 Output Total 350 Balance -350 Output: Urine 350 Other: Weight 90.718 kg 90.718 kg GENERAL DESCRIPTION: Elderly male lying in bed, no distress. No tachypnea or accessory muscle of respiration use. HEENT: Shows Pallor , no scleral icterus. Oral mucous membrane is dry. No pharyngeal erythema or thrush NECK: Trachea central, no thyromegaly. LUNGS: Unlabored breathing. Clear to auscultation anteriorly. No wheeze or crackle. HEART: S1, S2, regular rate and rhythm. No loud murmur ABDOMEN: Soft, no tenderness , guarding or rigidity, no organomegaly EXTREMITIES: Right lower extremity with some erythema and open wound or drainage, patient did have a stage II pressure ulcer to the left gluteal/upper thigh area with no slough tissue or drainage SKIN: No rash, no masses palpable. NEUROLOGICAL: The patient is awake, alert, oriented x3, mood and affect normal. Results CBC & Chem 7: 06/10/22 06:42 06/11/22 05:33 Labs: Abnormal Lab Results - Last 24 Hours (Table) 06/08/22 06/08/22 06/08/22 Range/Units 20:36 20:36 20:36 ESR 18 H (0-15) mm/hr Chloride 108 H (98-107) mmol/L Creatinine (0.66-1.25) mg/dL Glucose 176 H (74-99) mg/dL POC Glucose (mg/dL) (70-110) mg/dL Plasma Lactic Acid Papo 3.8 H* (0.7-2.0) mmol/L Calcium (8.4-10.2) mg/dL C-Reactive Protein 1.7 H (<1.0) mg/dL 06/09/22 06/09/22 06/09/22 Range/Units 00:05 03:26 03:26 ESR (0-15) mm/hr Chloride 111 H (98-107) mmol/L Creatinine 0.58 L (0.66-1.25) mg/dL Glucose 115 H (74-99) mg/dL POC Glucose (mg/dL) (70-110) mg/dL Plasma Lactic Acid Papo 2.8 H* 2.9 H* (0.7-2.0) mmol/L Calcium 8.1 L (8.4-10.2) mg/dL C-Reactive Protein (<1.0) mg/dL 06/09/22 06/09/22 06/09/22 Range/Units 05:53 10:28 11:40 ESR (0-15) mm/hr Chloride (98-107) mmol/L Creatinine (0.66-1.25) mg/dL Glucose (74-99) mg/dL POC Glucose (mg/dL) 136 H 146 H (70-110) mg/dL Plasma Lactic Acid Papo 2.1 H* (0.7-2.0) mmol/L Calcium (8.4-10.2) mg/dL C-Reactive Protein (<1.0) mg/dL Assessment and Plan (1) Cellulitis Current Visit: Yes Status: Acute Code(s): L03.90 - CELLULITIS, UNSPECIFIED SNOMED Code(s): 938002737 Plan: 1patient presented to the hospital with the wound to the left posterior thigh/ gluteal area and also the wound to the right coleman which has been there for a while apparently did has slight worsening noticed by the home care nurse however patient is afebrile white count is normal no significant slough tissue or drainage was noticed 2we will check inflammatory markers 3local wound care to continue as ordered keep the area of the pressure 4recommended discontinue vancomycin if the inflammatory markers are normal We will follow on clinical condition and cultures to further adjust medication if needed Thank you for this consultation will follow this patient with you Time with Patient: Greater than 30
[2022-06-10] MEDS: VANCOMYCIN 1,500 MG in SODIUM CHLORIDE 0.9% 500 ML 500 ML IVPB SCH ×2 (00:09→12:21)
[2022-06-10 06:13] LABS: Glucose,Whole Blood 134 mg/dL (70-110)
[2022-06-10] MEDS: INSULIN ASPART (NovoLOG) 100 UNIT/ML VIAL SQ SCH ×4 (06:40→21:39)
[2022-06-10] MEDS ORDERED: VANCOMYCIN TROUGH DUE 1 EACH MISC MISCELLANE ONE ×2 (07:00→23:00)
[2022-06-10 07:20] LABS: African American GFR (CKD) >90 (>60 ml/min/1.73 sqM); Anion Gap 5 mmol/L; Blood Urea Nitrogen 14 mg/dL (9-20); Calcium 7.9 mg/dL (8.4-10.2); Carbon Dioxide 21 mmol/L (22-30); Chloride 112 mmol/L (98-107); Glucose 134 mg/dL (74-99); Non-African American GFR(CKD) >90 (>60 ml/min/1.73 sqM); Potassium 3.6 mmol/L (3.5-5.1); Sodium 138 mmol/L (137-145)
[2022-06-10 08:02] LABS: C Reactive Protein 0.9 mg/dL (<1.0)
[2022-06-10] MEDS: metFORMIN 500 MG TAB PO SCH ×2 (09:16→21:39)
[2022-06-10] MEDS: lisinopriL 20 MG TAB PO SCH (09:16)
[2022-06-10 09:25] LABS: Basophils # (A) 0.02 X 10*3/uL (0.00-0.10); Basophils % (A) 0.4 %; Eosinophils # (A) 0.14 X 10*3/uL (0.04-0.35); Eosinophils % (A) 2.5 %; HCT 38.1 % (39.6-50.0); HGB 12.1 g/dL (13.0-17.0); Immature Grans, Automated 0.4 %; Lymphocytes # (A) 1.32 X 10*3/uL (0.90-5.00); Lymphocytes % (A) 23.6 %; MCH 27.4 pg (27.0-32.0); MCHC 31.8 g/dL (32.0-37.0); MCV 86.2 fL (80.0-97.0); Mean Platelet Volume 9.2 fL (9.5-12.2); Monocytes # (A) 0.38 X 10*3/uL (0.20-1.00); Monocytes % (A) 6.8 %; NRBC Per 100 WBC 0 /100 WBCS (0.0-0.0); Neutrophils # (A) 3.71 X 10*3/uL (1.80-7.70); Neutrophils % (A) 66.3 %; Platelet Count 159 X 10*3/uL (140-440); RBC 4.42 X 10*6/uL (4.40-5.60); RDW 14.9 % (11.5-14.5); WBC 5.59 X 10*3/uL (4.50-10.00)
[2022-06-10 12:00] LABS: Glucose,Whole Blood 136 mg/dL (70-110)
[2022-06-10 16:56] LABS: Glucose,Whole Blood 122 mg/dL (70-110)
--- NOTE | 2022-06-10 17:21 | P.PN ---
Subjective Progress Note Date: 06/10/22 67-year-old male with past history of diabetes, hypertension, cerebral palsy who is wheelchair bound who presents emergency department for sore on his left buttock. He has a home care nurse that comes in once a week to help care for him. The home care nurse noted that he had a wound to his left buttock. He has also been battling a wound to his right anterior coleman. He is wheelchair bound. States that he was well taken care of before March however in March he lost his . He now lives with his [id number] who also has medical problems. He has been more sedentary than what he is used to. He denies having much pain in the region. No fevers. Denies any chest pain or shortness of br eath. No nausea or vomiting. Denies any anterior abdominal pain. No changes in his bowel or bladder habits. States he has been eating and drinking without difficulty. He called his primary care doctor who recommended that he come into the emergency department for evaluation. EKG Findings:: EKG demonstrates sinus tachycardia with a rate of 125. QRS 127. QTC of 491. Right bundle-branch block. No acute ST segment elevations or depressions Patient does have persistent tachycardia however patient denies chest pain, shortness of breath or palpitations. Laboratory studies reveal a lactic of 3.8. C-reactive protein 1.7. Pelvic x-ray is performed to look for gas which is present. Patient is reported to have recently lost his and is now being cared by [id number]; in the ER patient was found to be unkempt; social service/OCCUPATIONAL PSYCHOLOGIST consult is recommended for possible placement -- Patient has been evaluated by ID; white blood count and inflammatory markers remain within normal limits; ID recommending to continue with the local wound care and keep pressure 80 is protected; vancomycin is recommended to be discontinued at this time Objective - Vital Signs Vital signs: Vital Signs Temp 97.8 F 06/10/22 08:08 Pulse 77 06/10/22 08:08 Resp 15 06/10/22 08:08 BP 122/71 06/10/22 08:08 Pulse Ox 97 06/10/22 08:08 FiO2 Intake & Output 06/09/22 06/10/22 06/10/22 18:59 06:59 18:59 Other: Voiding Method Urinal Diaper # Voids 3 3 - Exam GENERAL: The patient is alert and oriented x3, not in any acute distress. Well developed, well nourished. HEENT: Pupils are round and equally reacting to light. EOMI. No scleral icterus. No conjunctival pallor. Normocephalic, atraumatic. No pharyngeal erythema. No thyromegaly. CARDIOVASCULAR: S1 and S2 present. No murmurs, rubs, or gallops. PULMONARY: Chest is clear to auscultation, no wheezing or crackles. ABDOMEN: Soft, nontender, nondistended, normoactive bowel sounds. No palpable organomegaly. MUSCULOSKELETAL: No joint swelling or deformity. EXTREMITIES: No cyanosis, clubbing, or pedal edema. NEUROLOGICAL: Gross neurological examination did not reveal any focal deficits. SKIN: No rashes. - Labs CBC & Chem 7: 06/10/22 06:42 06/10/22 06:42 Labs: Abnormal Lab Results - Last 24 Hours (Table) 06/09/22 06/09/22 06/09/22 Range/Units 10:28 11:40 16:36 Hgb (13.0-17.0) g/dL Hct (39.6-50.0) % MCHC (32.0-37.0) g/dL RDW (11.5-14.5) % MPV (9.5-12.2) fL Chloride (98-107) mmol/L Carbon Dioxide (22-30) mmol/L Creatinine (0.66-1.25) mg/dL Glucose (74-99) mg/dL POC Glucose (mg/dL) 146 H 162 H (70-110) mg/dL Plasma Lactic Acid Papo 2.1 H* (0.7-2.0) mmol/L Calcium (8.4-10.2) mg/dL 06/09/22 06/10/22 06/10/22 Range/Units 20:36 06:07 06:42 Hgb (13.0-17.0) g/dL Hct (39.6-50.0) % MCHC (32.0-37.0) g/dL RDW (11.5-14.5) % MPV (9.5-12.2) fL Chloride 112 H (98-107) mmol/L Carbon Dioxide 21 L (22-30) mmol/L Creatinine 0.50 L (0.66-1.25) mg/dL Glucose 134 H (74-99) mg/dL POC Glucose (mg/dL) 141 H 134 H (70-110) mg/dL Plasma Lactic Acid Papo (0.7-2.0) mmol/L Calcium 7.9 L (8.4-10.2) mg/dL 06/10/22 Range/Units 06:42 Hgb 12.1 L (13.0-17.0) g/dL Hct 38.1 L (39.6-50.0) % MCHC 31.8 L (32.0-37.0) g/dL RDW 14.9 H (11.5-14.5) % MPV 9.2 L (9.5-12.2) fL Chloride (98-107) mmol/L Carbon Dioxide (22-30) mmol/L Creatinine (0.66-1.25) mg/dL Glucose (74-99) mg/dL POC Glucose (mg/dL) (70-110) mg/dL Plasma Lactic Acid Papo (0.7-2.0) mmol/L Calcium (8.4-10.2) mg/dL Microbiology - Last 24 Hours (Table) 06/08/22 22:15 Blood Culture - Preliminary Blood No Growth after 24 hours Assessment and Plan Assessment: 1. Infected sacral decubitus ulcer - Local wound care is ordered; patient is placed on IV Unasyn; ID is consulted - We will monitor CBC, CMP and pro-calcitonin 2. Lactic acidosis; likely related to wound tract infection versus dehydration; patient did receive IV fluid resuscitation; lactic acid level is trending down 3. Hypertension; stable on home dose of lisinopril 20 mg daily 4. Diabetes mellitus controlled with insulin; continue with Levemir 25 units subcu daily along with metformin thousand milligrams twice a day; monitor Accu- Cheks before meals and at bedtime with insulin sliding scale 5. Hyperlipidemia; Lipitor 20 mg by mouth daily at bedtime 6. Cerebral palsy; we will consult case management/OCCUPATIONAL PSYCHOLOGIST for possible placement
--- NOTE | 2022-06-10 18:42 | P.PN ---
Subjective Progress Note Date: 06/10/22 Principal diagnosis: Left posterior thigh/gluteal area wound Patient is a 67-year-old male with a past medical history significant for diabetes mellitus and hypertension cerebral palsy in this patient who is a wheelchair-bound presenting to the ER for evaluation of a wound to his left gluteal area and also some erythema to the right anterior coleman On today's evaluation that is 06/10/2022, the patient denies having any fever or any chills patient is breathing comfortably no chest pain shortness of breath or cough denies having any worsening pain to the left gluteal and right anterior leg wound area Objective - Vital Signs Vital signs: Vital Signs Temp 97.5 F L 06/10/22 01:20 Pulse 84 06/10/22 01:20 Resp 17 06/10/22 01:20 BP 125/75 06/10/22 01:20 Pulse Ox 96 06/10/22 01:20 FiO2 Intake & Output 06/09/22 06/10/22 06/10/22 18:59 06:59 18:59 Other: Voiding Method Urinal Diaper # Voids 3 3 - Exam GENERAL DESCRIPTION: An elderly male lying in bed in no distress RESPIRATORY SYSTEM: Unlabored breathing , decreased breath sounds at bases HEART: S1 S2 regular rate and rhythm , ABDOMEN: Soft , no tenderness EXTREMITIES: Left posterior thigh/gluteal area did have a stage II ulcer, right anterior coleman area did have some swelling and minimal redness but no open wound or drainage - Labs CBC & Chem 7: 06/10/22 06:42 06/10/22 06:42 Labs: Abnormal Lab Results - Last 24 Hours (Table) 06/09/22 06/09/22 06/09/22 Range/Units 10:28 11:40 16:36 Chloride (98-107) mmol/L Carbon Dioxide (22-30) mmol/L Creatinine (0.66-1.25) mg/dL Glucose (74-99) mg/dL POC Glucose (mg/dL) 146 H 162 H (70-110) mg/dL Plasma Lactic Acid Papo 2.1 H* (0.7-2.0) mmol/L Calcium (8.4-10.2) mg/dL 06/09/22 06/10/22 06/10/22 Range/Units 20:36 06:07 06:42 Chloride 112 H (98-107) mmol/L Carbon Dioxide 21 L (22-30) mmol/L Creatinine 0.50 L (0.66-1.25) mg/dL Glucose 134 H (74-99) mg/dL POC Glucose (mg/dL) 141 H 134 H (70-110) mg/dL Plasma Lactic Acid Papo (0.7-2.0) mmol/L Calcium 7.9 L (8.4-10.2) mg/dL Microbiology - Last 24 Hours (Table) 06/08/22 22:15 Blood Culture - Preliminary Blood No Growth after 24 hours Assessment and Plan (1) Cellulitis Current Visit: Yes Status: Acute Code(s): L03.90 - CELLULITIS, UNSPECIFIED SNOMED Code(s): 155631291 Plan: 1patient presented to the hospital with the wound to the left posterior thigh/ gluteal area and also the wound to the right coleman which has been there for a while apparently did has slight worsening noticed by the home care nurse however patient is afebrile white count is normal, left gluteal/posterior thigh area did have a stage II ulcer but no slough tissue right anterior leg did have minimal erythema of possible cellulitis 2local wound care to left gluteal/posterior thigh wound area with Aquacel silver dressing changed every 48 hour 3discontinue vancomycin and start the patient cefazolin Time with Patient: Less than 30
[2022-06-10 21:02] LABS: Glucose,Whole Blood 159 mg/dL (70-110)
[2022-06-10] MEDS: ATORVASTATIN 20 MG TAB PO SCH (21:39)
[2022-06-11 05:56] LABS: Glucose,Whole Blood 135 mg/dL (70-110)
[2022-06-11] MEDS: INSULIN ASPART (NovoLOG) 100 UNIT/ML VIAL SQ SCH ×4 (06:21→22:04)
[2022-06-11 06:26] LABS: African American GFR (CKD) >90 (>60 ml/min/1.73 sqM); Non-African American GFR(CKD) >90 (>60 ml/min/1.73 sqM)
[2022-06-11] MEDS: metFORMIN 500 MG TAB PO SCH ×2 (10:11→22:04)
[2022-06-11] MEDS: lisinopriL 20 MG TAB PO SCH (10:11)
--- NOTE | 2022-06-11 12:17 | P.PN ---
Subjective Progress Note Date: 06/11/22 Principal diagnosis: Left posterior thigh/gluteal area wound Patient is a 67-year-old male with a past medical history significant for diabetes mellitus and hypertension cerebral palsy in this patient who is a wheelchair-bound presenting to the ER for evaluation of a wound to his left gluteal area and also some erythema to the right anterior coleman On today's evaluation that is 06/11/2022, the patient continues to be afebrile, patient is breathing comfortably, the patient denies chest pain shortness of breath or cough denies having any pain to the left gluteal and right anterior leg wound area Objective - Vital Signs Vital signs: Vital Signs Temp 97.6 F 06/11/22 08:18 Pulse 80 06/11/22 08:18 Resp 16 06/11/22 08:18 BP 143/82 06/11/22 08:18 Pulse Ox 98 06/11/22 08:18 FiO2 Intake & Output 06/10/22 06/11/22 06/11/22 18:59 06:59 18:59 Output Total 400 600 Balance -400 -600 Output: Urine 400 600 Other: Voiding Method Urinal Urinal Urinal Diaper Diaper Diaper # Voids 1 # Bowel Movements 1 - Exam GENERAL DESCRIPTION: An elderly male lying in bed in no distress RESPIRATORY SYSTEM: Unlabored breathing , decreased breath sounds at bases HEART: S1 S2 regular rate and rhythm , ABDOMEN: Soft , no tenderness EXTREMITIES: Left posterior thigh/gluteal area did have a stage II ulcer, right anterior coleman area did have some swelling and minimal redness but no open wound or drainage - Labs CBC & Chem 7: 06/10/22 06:42 06/11/22 05:33 Labs: Abnormal Lab Results - Last 24 Hours (Table) 06/10/22 06/10/22 06/10/22 Range/Units 11:59 16:54 21:00 Creatinine (0.66-1.25) mg/dL POC Glucose (mg/dL) 136 H 122 H 159 H (70-110) mg/dL 06/11/22 06/11/22 Range/Units 05:33 05:54 Creatinine 0.49 L (0.66-1.25) mg/dL POC Glucose (mg/dL) 135 H (70-110) mg/dL Microbiology - Last 24 Hours (Table) 06/08/22 22:15 Blood Culture - Preliminary Blood No Growth after 48 hours Assessment and Plan (1) Cellulitis Current Visit: Yes Status: Acute Code(s): L03.90 - CELLULITIS, UNSPECIFIED SNOMED Code(s): 135900987 Plan: 1patient presented to the hospital with the wound to the left posterior thigh/ gluteal area and also the wound to the right coleman which has been there for a while apparently did has slight worsening noticed by the home care nurse however patient is afebrile white count is normal, left gluteal/posterior thigh area did have a stage II ulcer but no slough tissue right anterior leg did have minimal erythema of possible cellulitis 2local wound care to left gluteal/posterior thigh wound area with Aquacel silver dressing changed every 48 hour 3patient to continue with cefazolin, finishing therapy with oral Keflex Time with Patient: Less than 30
[2022-06-11 14:45] VITALS: BMI 35.4
--- NOTE | 2022-06-11 15:03 | P.PN ---
Subjective Progress Note Date: 06/11/22 This is a pleasant 67-year-old gentleman with past medical history of cerebral palsy, wheelchair bound, diabetes mellitus, admitted with left posterior thigh and gluteal area wounds. Evaluated by infectious disease, maintained on ceftazolin with local wound care with Aquacel silver dressings. Patient's recently in March, his [id number]-lw-awv has been trying to take care of, but expressed unable to do so. Patient reports his shu lift is manual and difficult for 1 person to manage. Reports they pulled up the carpeting and installed hardwood floors to facilitate the lift, but continues to experience difficulty. Good diet intake with no nausea vomiting or diarrhea. Blood sugars controlled. Denies chest pain, palpitations or shortness of breath. Afebrile. Preliminary blood cultures reporting no growth after 48 hours. Maintaining O2 sats in the high 90s on room air. Objective - Vital Signs Vital signs: Vital Signs Temp 97.6 F 06/11/22 08:18 Pulse 80 06/11/22 08:18 Resp 16 06/11/22 08:18 BP 143/82 06/11/22 08:18 Pulse Ox 98 06/11/22 08:18 FiO2 Intake & Output 06/10/22 06/11/22 06/11/22 18:59 06:59 18:59 Output Total 400 600 400 Balance -400 -600 -400 Output: Urine 400 600 400 Other: Voiding Method Urinal Urinal Urinal Diaper Diaper Diaper # Voids 1 # Bowel Movements 1 - Exam - Exam GENERAL: The patient is alert and oriented x3, no acute distress. Well developed, well nourished. HEENT: Pupils are round and equally reacting to light. EOMI. No scleral icterus. No conjunctival pallor. Normocephalic, atraumatic. No pharyngeal erythema. No thyromegaly. CARDIOVASCULAR: S1 and S2 present. No murmurs, rubs, or gallops. PULMONARY: Chest is clear to auscultation, no wheezing or crackles. ABDOMEN: Soft, nontender, nondistended, normoactive bowel sounds. No palpable organomegaly. EXTREMITIES: Stage II ulcer left gluteal/thigh, cellulitis right anterior lower extremity without drainage, minimal edema or redness. NEUROLOGICAL: Gross neurological examination did not reveal any new focal deficits. SKIN: No rashes. Warm and dry - Labs CBC & Chem 7: 06/10/22 06:42 06/11/22 05:33 Labs: Abnormal Lab Results - Last 24 Hours (Table) 06/10/22 06/10/22 06/11/22 Range/Units 16:54 21:00 05:33 Creatinine 0.49 L (0.66-1.25) mg/dL POC Glucose (mg/dL) 122 H 159 H (70-110) mg/dL 06/11/22 Range/Units 05:54 Creatinine (0.66-1.25) mg/dL POC Glucose (mg/dL) 135 H (70-110) mg/dL Microbiology - Last 24 Hours (Table) 06/08/22 22:15 Blood Culture - Preliminary Blood No Growth after 48 hours Assessment and Plan Assessment: Diabetic ulcer,Left gluteal/thigh stage II, right anterior lower extremity cellulitis Dehydration Lactic acidosis secondary to the above Diabetes mellitus Hypertension Hyperlipidemia Cerebral palsy, wheelchair bound Grieving, spouse recently in March 2022. Plan: Continue on current medication regime ,monitoring and symptoms and treatment. Antibiotics /Wound Care as per infectious disease. Discharge planning in progress for [facility] ECF placement, Pending authorization. The impression and plan of care has been dictated as directed. : I performed a history and examination of this patient, discussed the same with the dictator. I agree with the dictator's note ,documented as a scribe. Any additional findings or plans will be noted.
[2022-06-11 16:52] LABS: Glucose,Whole Blood 130 mg/dL (70-110)
[2022-06-11 22:00] LABS: Glucose,Whole Blood 168 mg/dL (70-110)
[2022-06-11] MEDS: ATORVASTATIN 20 MG TAB PO SCH (22:04)
[2022-06-12 06:00] LABS: Glucose,Whole Blood 137 mg/dL (70-110)
[2022-06-12] MEDS: INSULIN ASPART (NovoLOG) 100 UNIT/ML VIAL SQ SCH ×4 (06:41→21:56)
[2022-06-12] MEDS: metFORMIN 500 MG TAB PO SCH ×2 (09:06→21:48)
[2022-06-12] MEDS: lisinopriL 20 MG TAB PO SCH (09:06)
--- NOTE | 2022-06-12 11:09 | P.DS ---
Providers Date of admission: 06/08/22 21:58 Expected date of discharge: 06/19/22 Attending physician: Nayan Yousif Consults: 06/09/22 09:49 Consult Physician Routine Consulting Provider: Jeannette Taylor Consult Reason/Comments: Infected sacral wound Do you want consulting provider notified?: Yes Primary care physician: Nayan Yousif Hospital Course: Final Diagnoses: Diabetic ulcer,Left gluteal/thigh stage II, right anterior lower extremity cellulitis Dehydration Lactic acidosis secondary to the above Diabetes mellitus Hypertension Hyperlipidemia Cerebral palsy, wheelchair bound Grieving, spouse recently in March 2022. Hospital course:This is a pleasant 67-year-old gentleman with past medical history of cerebral palsy, wheelchair bound, diabetes mellitus, admitted with left posterior thigh and gluteal area wounds. Evaluated by infectious disease, maintained on ceftazolin with local wound care with Aquacel silver dressings. Patient's recently in March, his xyyiphu-ar-ssc has been trying to take care of, but expressed unable to do so. Patient reports his shu lift is manual and difficult for 1 person to manage. Reports they pulled up the carpeting and installed hardwood floors to facilitate the lift, but continues to experience difficulty. Good diet intake with no nausea vomiting or diarrhea. Blood sugars controlled. Denies chest pain, palpitations or shortness of breath. Afebrile. Preliminary blood cultures reporting no growth after 48 hours. Maintaining O2 sats in the high 90s on room air. Maintained on antibiotics and wound care as per infectious disease. Significant clinical improvement. Afebrile, blood sugars controlled. Discharge planning in progress for ECF placement, Daphne currently reviewing. Patient will be discharged to an ECF, today, pending authorization, in a stable condition with guarded prognosis. The impression and plan of care has been dictated as directed. : I performed a history and examination of this patient, discussed the same with the dictator. I agree with the dictator's note ,documented as a scribe. Any additional findings or plans will be noted. Patient Condition at Discharge: Stable Plan - Discharge Summary Discharge Rx Participant: No New Discharge Prescriptions: New Acetaminophen Tab [Tylenol] 650 mg PO Q6HR PRN tab PRN Reason: Mild Pain Or Fever > 100.5 Nystatin 100,000 Unit/gm Powd [Mycostatin Powder] 1 applic TOPICAL TID #30 gm INSULIN LISPRO (HumaLOG) [humaLOG] 0 unit SQ ACHS #10 ml Continue glipiZIDE XL [Glucotrol XL] 5 mg PO BID Ibuprofen [Motrin] 800 mg PO TID PRN PRN Reason: Pain Enalapril [Vasotec] 10 mg PO DAILY metFORMIN HCL [Glucophage] 1,000 mg PO BID Silver Sulfadiazine [SSD 1% Cream] 1 applic TOPICAL DAILY PRN PRN Reason: Skin Irritation Atorvastatin [Lipitor] 20 mg PO HS Insulin Degludec [Tresiba Flextouch U-200 Pen] 25 units SQ DAILY PRN PRN Reason: BLOOD SUGAR >200 Discharge Medication List Enalapril [Vasotec] 10 mg PO DAILY 11/28/15 [History] Ibuprofen [Motrin] 800 mg PO TID PRN 11/28/15 [History] glipiZIDE XL [Glucotrol XL] 5 mg PO BID 11/28/15 [History] metFORMIN HCL [Glucophage] 1,000 mg PO BID 11/20/16 [History] Atorvastatin [Lipitor] 20 mg PO HS 06/08/22 [History] Insulin Degludec [Tresiba Flextouch U-200 Pen] 25 units SQ DAILY PRN 06/08/22 [History] Silver Sulfadiazine [SSD 1% Cream] 1 applic TOPICAL DAILY PRN 06/08/22 [History] Acetaminophen Tab [Tylenol] 650 mg PO Q6HR PRN tab 06/12/22 [Rx] INSULIN LISPRO (HumaLOG) [humaLOG] 0 unit SQ ACHS #10 ml 06/12/22 [Rx] Nystatin 100,000 Unit/gm Powd [Mycostatin Powder] 1 applic TOPICAL TID #30 gm 06/12/22 [Rx] Follow up Appointment(s)/Referral(s): Nayan Yousif DO [Primary Care Provider] - 1 Week Activity/Diet/Wound Care/Special Instructions: Daphne SANTIAGO CBC,BMP in 3 days Discharge Disposition: TRANSFER TO [facility]
[2022-06-12 12:10] LABS: Glucose,Whole Blood 134 mg/dL (70-110)
[2022-06-12 17:14] LABS: Glucose,Whole Blood 136 mg/dL (70-110)
[2022-06-12 20:43] LABS: Glucose,Whole Blood 159 mg/dL (70-110)
--- NOTE | 2022-06-12 21:04 | P.PN ---
Subjective Progress Note Date: 06/12/22 Principal diagnosis: Left posterior thigh/gluteal area wound Patient is a 67-year-old male with a past medical history significant for diabetes mellitus and hypertension cerebral palsy in this patient who is a wheelchair-bound presenting to the ER for evaluation of a wound to his left gluteal area and also some erythema to the right anterior coleman On today's evaluation that is 06/12/2022, the patient remains to be afebrile, patient is breathing comfortably on room air, the patient denies chest pain shortness of breath or cough , the patient denies having any pain to the left gluteal and right anterior leg wound area Objective - Vital Signs Vital signs: Vital Signs Temp 97.8 F 06/12/22 07:34 Pulse 81 06/12/22 07:34 Resp 18 06/12/22 07:34 BP 113/69 06/12/22 07:34 Pulse Ox 96 06/12/22 07:34 FiO2 Intake & Output 06/11/22 06/12/22 06/12/22 18:59 06:59 18:59 Intake Total 100 Output Total 400 400 Balance -300 -400 Weight 90.718 kg Intake: Intake, IV Titration 100 Amount ceFAZolin 2 gm In Sodium 100 Chloride 0.9% 50 ml @ 100 mls/hr IVPB Q8HR [facility] Rx# :[id number] Output: Urine 400 400 Other: Voiding Method Urinal Urinal Diaper Diaper - Exam GENERAL DESCRIPTION: An elderly male lying in bed in no distress RESPIRATORY SYSTEM: Unlabored breathing , decreased breath sounds at bases HEART: S1 S2 regular rate and rhythm , ABDOMEN: Soft , no tenderness EXTREMITIES: Left posterior thigh/gluteal area did have a stage II ulcer, right anterior coleman area did have some swelling and minimal redness but no open wound or drainage - Labs CBC & Chem 7: 06/10/22 06:42 06/11/22 05:33 Labs: Abnormal Lab Results - Last 24 Hours (Table) 06/11/22 06/11/22 06/12/22 Range/Units 16:50 21:58 05:59 POC Glucose (mg/dL) 130 H 168 H 137 H (70-110) mg/dL Microbiology - Last 24 Hours (Table) 06/08/22 22:15 Blood Culture - Preliminary Blood No Growth after 72 hours Assessment and Plan (1) Cellulitis Current Visit: Yes Status: Acute Code(s): L03.90 - CELLULITIS, UNSPECIFIED SNOMED Code(s): 959796009 Plan: 1patient presented to the hospital with the wound to the left posterior thigh/ gluteal area and also the wound to the right coleman which has been there for a while apparently did has slight worsening noticed by the home care nurse however patient is afebrile white count is normal, left gluteal/posterior thigh area did have a stage II ulcer but no slough tissue right anterior leg did have minimal erythema of possible cellulitis 2local wound care to left gluteal/posterior thigh wound area with Aquacel silver dressing changed every 48 hour 3patient seemed to have show some clinical improvement and will continue with cefazolin, finishing therapy with oral Keflex Time with Patient: Less than 30
[2022-06-12] MEDS: ATORVASTATIN 20 MG TAB PO SCH (21:48)
[2022-06-13 06:08] LABS: Glucose,Whole Blood 158 mg/dL (70-110)
[2022-06-13] MEDS: INSULIN ASPART (NovoLOG) 100 UNIT/ML VIAL SQ SCH ×3 (06:45→17:03)
[2022-06-13] MEDS: lisinopriL 20 MG TAB PO SCH (10:56)
[2022-06-13] MEDS: metFORMIN 500 MG TAB PO SCH (10:56)
[2022-06-13 11:50] LABS: Glucose,Whole Blood 168 mg/dL (70-110)
[2022-06-13] MEDS: NYSTATIN 100,000 UNIT/GM POWD 15 GM TOPICAL SCH ×2 (12:57→17:17)
--- NOTE | 2022-06-13 14:15 | P.PN ---
Subjective Progress Note Date: 06/13/22 Principal diagnosis: Left posterior thigh/gluteal area wound Patient is a 67-year-old male with a past medical history significant for diabetes mellitus and hypertension cerebral palsy in this patient who is a wheelchair-bound presenting to the ER for evaluation of a wound to his left gluteal area and also some erythema to the right anterior coleman On today's evaluation that is 06/13/2022, the patient continues to be afebrile, patient is breathing comfortably on room air, the patient denies chest pain shortness of breath or cough , the patient denies having any pain to the left gluteal and right anterior leg wound area, has been complaining of some itching and discomfort to his abdominal fold and is requesting for nystatin powder than the cream Objective - Vital Signs Vital signs: Vital Signs Temp 98.6 F 06/13/22 07:01 Pulse 82 06/13/22 07:01 Resp 16 06/13/22 07:01 BP 121/80 06/13/22 07:01 Pulse Ox 98 06/13/22 07:01 FiO2 Intake & Output 06/12/22 06/13/22 06/13/22 18:59 06:59 18:59 Output Total 1925 500 Balance -1925 -500 Output: Urine 1925 500 Other: Voiding Method Urinal Urinal Diaper Diaper # Voids 2 # Bowel Movements 2 - Exam GENERAL DESCRIPTION: An elderly male lying in bed in no distress RESPIRATORY SYSTEM: Unlabored breathing , decreased breath sounds at bases HEART: S1 S2 regular rate and rhythm , ABDOMEN: Soft , no tenderness EXTREMITIES: Left posterior thigh/gluteal area did have a stage II ulcer, right anterior coleman area did have some swelling and minimal redness but no open wound or drainage - Labs CBC & Chem 7: 06/10/22 06:42 06/11/22 05:33 Labs: Abnormal Lab Results - Last 24 Hours (Table) 06/12/22 06/12/22 06/12/22 Range/Units 12:09 17:12 20:41 POC Glucose (mg/dL) 134 H 136 H 159 H (70-110) mg/dL 06/13/22 Range/Units 06:06 POC Glucose (mg/dL) 158 H (70-110) mg/dL Microbiology - Last 24 Hours (Table) 06/08/22 22:15 Blood Culture - Preliminary Blood No Growth after 96 hours Assessment and Plan (1) Cellulitis Current Visit: Yes Status: Acute Code(s): L03.90 - CELLULITIS, UNSPECIFIED SNOMED Code(s): 821284821 Plan: 1patient presented to the hospital with the wound to the left posterior thigh/ gluteal area and also the wound to the right coleman which has been there for a while apparently did has slight worsening noticed by the home care nurse however patient is afebrile white count is normal, left gluteal/posterior thigh area did have a stage II ulcer but no slough tissue right anterior leg did have minimal erythema of possible cellulitis 2local wound care to left gluteal/posterior thigh wound area with Aquacel silver dressing changed every 48 hour 3patient seemed to have show some clinical improvement and will finish therapy with oral Keflex 7 days 4abdominal fold cutaneous candidiasis nystatin powder twice a day for 7 days Time with Patient: Less than 30
[2022-06-13 15:45] VITALS: BP 168/93; PULSE 102; RESP 19; TEMP 98
[2022-06-13 16:49] LABS: Glucose,Whole Blood 137 mg/dL (70-110)
--- NOTE | 2022-06-15 18:59 | CDI ---
Documentation Clarification Form Date: 06/15/2022 6:39:58 PM From: Jany Dia Phone: Admit Date: 06/08/2022 9:58:00 PM Patient Name: Zeeshan Welch Visit Number: [id number] Discharge Date: 06/13/2022 5:45:00 PM ATTENTION: The Clinical Documentation Specialists (CDI) and [facility] Coding Staff appreciate your assistance in clarifying documentation. Please respond to the clarification below the line at the bottom and electronically sign. The CDI & [facility] Coding staff will review the response and follow-up if needed. Please note: Queries are made part of the Legal Health Record. If you have any questions, please contact the author of this message via ITS. Dr. Nayan Yousif Conflicting documentation has been found in the medical record. As attending physician, please provide clarification. Infectedsacral decubitus ulcer per H&P Note Diabetic ulcer, Left gluteal/thigh stage II per Progress Note 06/11/22 History/Risk Factors: 67yo M, LT gluteal/thigh ulcer stage II, RLE cellulitis, dehydration, lactic acidosis, DMII, HTN, HLD, CP wheelchair bound, grieving spouse, abdominal fold cutaneouscandidiasis Clinical Indicators: Localwoundcare is ordered; patient isplacedon IV Unasyn; ID is consulted. We will monitor CBC, CMP and pro-calcitonin Treatment: Aquacel silverdressing changedevery 48 hour Please clarify which diagnosis is most appropriate: [ X] Infectedsacral decubitus pressure ulcer stage II [ ] DMII LT gluteal/thigh non- pressure ulcer stage II [ ] Other (please specify) [ ] Unable to determine (Template Last Revised: June 2020) MTDD
--- NOTE | 2022-06-15 19:14 | CDI ---
Documentation Clarification Form Date: 06/15/2022 6:39:58 PM From: Jany Dia Phone: Admit Date: 06/08/2022 9:58:00 PM Patient Name: Zeeshan Welch Visit Number: [id number] Discharge Date: 06/13/2022 5:45:00 PM ATTENTION: The Clinical Documentation Specialists (CDI) and [facility] Coding Staff appreciate your assistance in clarifying documentation. Please respond to the clarification below the line at the bottom and electronically sign. The CDI & [facility] Coding staff will review the response and follow-up if needed. Please note: Queries are made part of the Legal Health Record. If you have any questions, please contact the author of this message via ITS. Dr. Nayan Yousif Cellulitis is documented per Consult 06/09/22. Additional clarification regarding the type of cellulitis is requested. History/Risk Factors: 67yo M, LT gluteal/thigh ulcer stage II, RLE cellulitis, dehydration, lactic acidosis, DMII, HTN, HLD, CP wheelchair bound, grieving spouse, cutaneouscandidiasis Clinical Indicators: noslough tissue right anterior leg did have minimal erythemaofpossiblecellulitis Treatment: Maintained on antibiotics andwoundcare as perinfectious disease. Significant clinical improvement. Afebrile, blood sugars controlled. Discharge planning in progress for ECFplacement Please clarify the etiology of the cellulitis, if known: [ X] Cellulitis is a diabetic skin complication [ ] Cellulitis is not a diabetic skin complication [ ] Other, please specify: [ ] Unable to determine (Template Last Revised: April 2022) MTDD
== END 2022-06-13 17:45 | DRG 593 ==
LOC: EC 19:53 → 4SSUR 21:58
PROVIDERS: ADMIT Family Medicine; ATTEND Family Medicine
DX: L89.152 Pressure ulcer of sacral region, stage 2 (principal); E87.20 Acidosis, unspecified; L03.317 Cellulitis of buttock; E11.628 Type 2 diabetes mellitus with other skin complications; E11.622 Type 2 diabetes mellitus with other skin ulcer; E78.5 Hyperlipidemia, unspecified; B37.2 Candidiasis of skin and nail; I45.10 Unspecified right bundle-branch block; G80.9 Cerebral palsy, unspecified; I10 Essential (primary) hypertension; E86.0 Dehydration; R00.0 Tachycardia, unspecified; M79.89 Other specified soft tissue disorders; S80.921A Unspecified superficial injury of right lower leg, initial encounter; L98.412 Non-pressure chronic ulcer of buttock with fat layer exposed; Z74.8 Other problems related to care provider dependency; Z99.3 Dependence on wheelchair; Z79.899 Other long term (current) drug therapy; Z79.84 Long term (current) use of oral hypoglycemic drugs; Z79.4 Long term (current) use of insulin; Z63.4 Disappearance and death of family member; Z28.311 Partially vaccinated for COVID-19
CPT/HCPCS: 36415; 72170; 80048; 80053; 80202; 82565; 83036; 83605; 85025; 85652; 86140; 87040; 93005; 96361; 96365; 99285